=== PATIENT | female | born 1945 | race African-American/Black ===

== ENCOUNTER 2016-08-02 14:35 | Emergency (ER) | payer OTHER ==
[~2016-08-02] VITALS: Ht 167.6 cm; Wt 92.1 kg
[~2016-08-02 14:35] MED LIST: IBUPROFEN600 MG ORAL
[2016-08-02 15:15] VITALS: BP 141/82
[2016-08-02 15:38] LABS: APPEARANCE,URINE CLEAR; KETONES,URINE NEGATIVE (NEGATIVE); LEUKOCYTE ESTERASE ,URINE 1+ (NEGATIVE); NITRITE,URINE NEGATIVE (NEGATIVE); PH,URINE 6 (4.5-8.0); PROTEIN,URINE 2+ (NEGATIVE); UROBILINOGEN,URINE NORMAL MG/DL (0.0-1.0)
[2016-08-02 15:59] LABS: BACTERIA,URINE FEW /HPF; SQUAMOUS EPITHELIAL CELL,UR FEW /LPF (NONE/OCC)
[2016-08-02] MEDS ORDERED: NITROFURANTOIN100 M2 ORAL (16:05)
[2016-08-02 16:30] VITALS: BP 141/82
--- NOTE | 2016-08-02 17:01 | Emergency Room Report ---
History of Present Illness General Chief Complaint: Vaginal Source: Patient Present Illness HPI The patient is a 70-year-old female presenting with one week of dysuria, increased urinary frequency, and vaginal irritation. Pain is described as an 8/ 10 burning which occurs only during urination. The patient also admits to lower mid abdominal pain. The patient denies flank pain denies other symptoms including nausea, vomiting, fever, chills, rash Allergies: Coded Allergies: No Known Allergies (Unverified , 07/29/14) Patient History Past Medical History: see triage record Pertinent Family History: none Last Menstrual Period: na Reviewed Nursing Documentation: PMH: Agreed, PSxH: Agreed Nursing Documentation-PMH Past Medical History: No History, Except For Hx Cardiac Problems: Yes - high cholesterol Hx Hypertension: Yes Hx Diabetes: Yes Review of Systems All Other Systems: negative except mentioned in HPI Physical Exam Vital Signs Date Time Temp Pulse Resp B/P Pulse Ox O2 Delivery O2 Flow Rate FiO2 08/02/16 14:52 97.7 98 16 141/82 96 Room Air Sp02 EP Interpretation: reviewed, normal General Appearance: no apparent distress, alert, GCS 15, non-toxic Head: normocephalic, atraumatic Eyes: bilateral eye PERRL, bilateral eye normal inspection Gastrointestinal: normal bowel sounds, non tender, soft, non-distended, no guarding, no rebound Genitourinary: normal inspection, no CVA tenderness Musculoskeletal: back normal, gait/station normal, normal range of motion, non- tender Neurologic: alert, oriented x3, responsive, motor strength/tone normal, sensory intact, speech normal Psychiatric: judgement/insight normal, memory normal, mood/affect normal, no suicidal/homicidal ideation Skin: normal color, no rash, warm/dry, well hydrated Lymphatic: no adenopathy Medical Decision Making PA Attestation Dr. James is my supervising physician. Patient management was discussed with my supervising physician Diagnostic Impression: Primary Impression: Urinary tract infection ER Course The patient is a 70-year-old female presenting with one week of dysuria, increased urinary frequency, and vaginal irritation. Differential diagnosis considered but not limited to: UTI, vaginitis, pyelonephritis, pyelonephrosis, PID, ectopic PE: Vitals WNL. NAD. Abdomen: Normal appearance. Non distended. No ecchymosis. Normal BS. Non TTP. No McBurney point tenderness. No guarding. No CVA tenderness Urinalysis shows few bacteria with 1+ leukocyte esterase The patient is discharged home with a prescription for Macrobid and will followup with PMD. ER precautions are given Laboratory Tests Test 08/02/16 15:21 Urine Color Pale yellow Urine Appearance Clear Urine pH 6 (4.5-8.0) Urine Specific [place] 1.015 (1.005-1.035) Urine Protein 2+ (NEGATIVE) H Urine Glucose (UA) 4+ (NEGATIVE) H Urine Ketones Negative (NEGATIVE) Urine Occult Blood 1+ (NEGATIVE) H Urine Nitrite Negative (NEGATIVE) Urine Bilirubin Negative (NEGATIVE) Urine Urobilinogen Normal MG/DL (0.0-1.0) Urine Leukocyte Esterase 1+ (NEGATIVE) H Urine RBC 2-4 /HPF (0 - 2) H Urine WBC 2-4 /HPF (0 - 2) Urine Squamous Epithelial Cells Few /LPF (NONE/OCC) Urine Bacteria Few /HPF (NONE) Lab Results Impression 1+ leukocyte esterase with few bacteria Last Vital Signs Date Time Temp Pulse Resp B/P Pulse Ox O2 Delivery O2 Flow Rate FiO2 08/02/16 14:52 97.7 98 16 141/82 96 Room Air Status: improved Disposition: HOME, SELF-CARE Condition: Improved Scripts Nitrofurantoin Monohyd/M-Cryst* (MACROBID 100 MG*) 100 Mg Capsule 100 MG ORAL EVERY 12 HOURS, #14 CAP Prov: ANNA ULLOA 08/02/16 Patient Instructions: Urinary Tract Infection Additional Instructions: I discussed my findings with the patient. All questions and concerns have been answered. Treatment and medication compliance have been addressed. I advised the patient that they need to follow up with PMD in 3-5 days. Return to ED if symptoms worsen, new symptoms arise, or if needed for any reason. Patient verbalized understanding of discharge instructions. ANNA ULLOA Aug 02, 2016 17:01
== END 2016-08-02 16:30 | disposition home or self-care (01) ==
LOC: EMR 15:00
DX: N39.0 Urinary tract infection, site not specified (principal); I10 Essential (primary) hypertension; E11.9 Type 2 diabetes mellitus without complications
CPT/HCPCS: 81003; 99283

== ENCOUNTER 2018-08-08 13:01 | Emergency (ER) | payer MEDICARE, OTHER ==
[~2018-08-08] VITALS: Ht 167.6 cm; Wt 88.0 kg
[~2018-08-08 13:01] MED LIST changes: +NITROFURANTOIN100 M2 ORAL
--- NOTE | 2018-08-08 13:44 | Emergency Room Report ---
History of Present Illness General Chief Complaint: Back Pain-No Injury Source: Patient Present Illness HPI 72-year-old female patient presents the ER complaining of left-sided lower back pain times a few days. Reports that she bent over to orange picker something and when she stood up her back began to hurt. Reports pain in that side of her back. Denies tenderness palpation however reports pain worse with movement. Denies bowel or bladder incontinence. Denies history of back problems. Denies pain radiating down her legs. Denies history of cancer drug use. Denies fever , chest pain, shortness of breath. Denies abdominal pain. Denies other aggravating or relieving factors pain. denies dysuria, hematuria. Allergies: Coded Allergies: No Known Allergies (Unverified , 07/29/14) Patient History Past Medical History: see triage record Now: No Reviewed Nursing Documentation: PMH: Agreed; PSxH: Agreed Nursing Documentation-PMH Past Medical History: No History, Except For Hx Cardiac Problems: Yes - high cholesterol Hx Hypertension: Yes Hx Diabetes: Yes Review of Systems All Other Systems: negative except mentioned in HPI Physical Exam Vital Signs Date Time Temp Pulse Resp B/P (MAP) Pulse Ox O2 Delivery O2 Flow Rate FiO2 08/08/18 13:19 97.9 80 21 179/90 96 Room Air Sp02 EP Interpretation: reviewed, normal General Appearance: well appearing, no apparent distress, alert, GCS 15, non- toxic Head: normocephalic, atraumatic Eyes: bilateral eye normal inspection, bilateral eye PERRL ENT: hearing grossly normal, normal pharynx, no angioedema, normal voice, uvula midline, moist mucus membranes Neck: full range of motion, no meningismus, no bony tend Respiratory: lungs clear, normal breath sounds, no rhonchi, no respiratory distress, no accessory muscle use, no wheezing, speaking full sentences Cardiovascular #1: regular rate, rhythm, no edema Gastrointestinal: non tender, soft, no mass, non-distended, no guarding, no rebound Genitourinary: no CVA tenderness Musculoskeletal: back normal, digits/nails normal, gait/station normal, normal range of motion, non-tender Neurologic: alert, oriented x3, responsive, motor strength/tone normal, SLR negative, sensory intact, cerebellar normal, normal gait, speech normal Psychiatric: mood/affect normal Skin: no rash Medical Decision Making PA Attestation Dr. Vela is my supervising Physician whom patient management has been discussed with. Diagnostic Impression: Primary Impression: Back pain ER Course Pt presents to ED c/o back pain. DDX considered but are not limited to sprain, strain, cauda equine, epidural abscess, AAA, spinal cord compression, kidney stones. Low suspicion for cauda equina, no bowel or bladder incontinence or retention. No fever, nontoxic appearing, no radiation of pain, low suspicion for epidural mass. No abdominal pain, no blood pressure elevation, nontoxic appearing, low suspicion for AAA. VITAL SIGNS are WNL, patient is afebrile Ordered pain medication, imaging, labs. ER COURSE: Pain medication provided. CT lumbar spine shows No acute bony trauma and Degenerative changes. Discuss results with the patient. Provided patient with copy of results. Instructed patient to followup with PCP and discuss results of report with patient, discuss need for further treatment and referral. Followup with pain management and/or PT. Request referral from PCP. Followup with PCP for further MRI as needed. Patient reports feeling better. Able to ambulate independently. Okay for outpatient follow-up and treatment. DISCHARGE: -Rx provided for Motrin -Rx provided for Lidocaine patch -Rx provided for Robaxin. SE may cause drowsiness, do not take prior to drinking , driving, or operating [employer] machinery. At this time pt. is stable for d/c to home. At this time patient is resting comfortably, in no acute distress, nontoxic appearing, smiling and talking without difficulty. Will provide printed patient care instructions, and any necessary prescriptions. Patient instructed to follow with primary care provider for further treatment and referral as needed. Care plan and follow up instructions have been discussed with the patient prior to discharge. Patient reports understanding and agreement to treatment plan. Patient questions asked and answered. ER precautions given, patient instructed to return to ER immediately for any new or worsening of symptoms. - Please note that this Emergency Department Report was dictated using [employer] technology software, occasionally this can lead to erroneous entry secondary to interpretation by the dictation equipment. CT/MRI/US Diagnostic Results CT/MRI/US Diagnostic Results : Imaging Test Ordered: CT lumbar spine Impression Impression: No acute bony trauma Degenerative changes, as detailed in radiology report. Last Vital Signs Date Time Temp Pulse Resp B/P (MAP) Pulse Ox O2 Delivery O2 Flow Rate FiO2 08/08/18 13:19 97.9 80 21 179/90 96 Room Air Status: improved Disposition: HOME, SELF-CARE Condition: Stable Scripts Ibuprofen* (MOTRIN*) 600 Mg Tablet 600 MG ORAL Q8H PRN for For Pain, #30 TAB 0 Refills Prov: Lew Beard 08/08/18 Lidocaine (Lidocaine) 1 Each Adh..patch 5 % TP DAILY for 7 Days, #7 PATCH Prov: Lew Beard 08/08/18 Baclofen* (BACLOFEN*) 10 Mg Tablet 10 MG ORAL THREE TIMES A DAY, #20 TAB Prov: Lew Beard 08/08/18 Patient Instructions: Back Pain, Adult, Degenerative Disk Disease, Muscle Strain, [id number] Additional Instructions: Patient instructed to follow up with primary care provider and discuss further referral to orthopedics/physical therapy/pain management as needed. If unable to followup with PCP, followup with orthopedic urgent care in 5-7 days , call to schedule appointment. Patient instructed on RICE method: rest, ice, compression, elevation. Patient instructed to WBAT. Take medications as directed. Patient questions asked and answered. ER precautions given, patient instructed to return to ER immediately for any new or worsening of symptoms. [facility] [address] [facility] [address] [facility], [address] [email or web address] Lew Beard Aug 08, 2018 13:44
[2018-08-08] MEDS ORDERED: traMADol 50mg tab ORAL ONE (13:45)
[2018-08-08] MEDS ORDERED: Methocarbamol 500mg tab ORAL ONE (13:45)
--- NOTE | 2018-08-08 14:42 | Diagnostic Imaging Report ---
Indications: Left-sided lower back pain for a few days Technique: Spiral acquisitions obtained through the lumbar spine. Multiplanar reconstructions were generated. No IV contrast utilized. Total dose length product 654.53 mGycm. CTDIvol(s) 23.21 mGy. Dose reduction achieved using automated exposure control Comparison: none Findings: There is transitional anatomy with T12 demonstrating vestigial ribs. The bony alignment is normal. Vertebral body heights are preserved. The disc spaces are preserved. No acute fractures. No dislocations. At T11-12, there is mild vacuum disc formation. No significant disc bulge or protrusion, disc narrowing, spinal stenosis, or neural foraminal stenosis. At L1-2, there is mild circumferential annular bulge. This results in equivocal borderline narrowing of the spinal canal. No significant neural foraminal stenosis. At L2-3, there is vacuum formation. The disc spaces preserved. There is suggestion of left subarticular and some foraminal disc protrusion as well as mild circumferential annular bulge. In combination with ligamentum flavum and facet hypertrophy, this results in mild narrowing of the spinal canal, possible compromise of the left lateral recess and neural foramen. The right neural foramen is preserved. There is mild bilateral facet arthrosis at this level. At L3-4, there is circumferential annular bulge. This, in combination with ligamentum flavum hypertrophy, results in mild narrowing of the spinal canal. There is also some left subarticular disc protrusion, which may impinge slightly upon the left lateral recess. This does not significantly compromise the neural foramen. There is bilateral facet arthrosis. The disc space is preserved. At the remaining disc levels, no significant disc bulge or protrusion, spinal stenosis, or neural foraminal stenosis. There is facet arthrosis of the bilateral L3-4, L4-5, and L5-S1 facets, most striking at L3-4 The included extraspinal soft tissues are unremarkable Impression: No acute bony trauma Degenerative changes, as detailed on a level by level basis above The CT scanner at [facility] is accredited by the [employer] and the scans are performed using protocols designed to limit radiation exposure to as low as reasonably achievable to attain images of sufficient resolution adequate for diagnostic evaluation.
--- NOTE | 2018-08-08 14:48 | NUR ---
ED Nurse Note: Pt walked in from home, bended down to leaf size picker object on Wednesday08/05/18 and has lower back pain since then. Pain 9/10 ramesh. BP 179/80 upon arrival. AOx4, other VSS. will cont to monitor.
[2018-08-08 14:52] VITALS: BP 159/91
[2018-08-08] MEDS ORDERED: IBUPROFEN600 MG ORAL (15:34)
[2018-08-08] MEDS ORDERED: BACLOFEN10 MG ORAL (15:34)
[2018-08-08] MEDS ORDERED: LIDOCAINE700 M1 TP (15:34)
[2018-08-08 15:44] VITALS: BP 159/91
--- NOTE | 2018-08-08 15:45 | NUR ---
ER DISCHARGE NOTE: Patient is cleared to be discharged per ERMD, pt is aox4, on room air, with stable vital signs. pt was given dc and prescription instructions, pt was able to verbalize understanding, pt id band removed without complications. pt is able to ambulate with steady gait. pt took all belongings.
== END 2018-08-08 15:40 | disposition home or self-care (01) ==
LOC: EMR 13:56
DX: M54.5 Low back pain (principal); I10 Essential (primary) hypertension; E11.9 Type 2 diabetes mellitus without complications; E78.00 Pure hypercholesterolemia, unspecified
CPT/HCPCS: 72131; 99284

== ENCOUNTER 2019-04-23 09:08 | Emergency (ER) | payer MEDICARE ==
[~2019-04-23] VITALS: Ht 167.6 cm; Wt 82.6 kg
[~2019-04-23 09:08] MED LIST changes: +BACLOFEN10 MG ORAL; +LIDOCAINE700 M1 TP
--- NOTE | 2019-04-23 09:16 | NUR ---
ED Nurse Note: Patient ambulated into ER from home with c/o vaginal spotting, itching, and irritation. Pain score of 6/10. Patient states a hx of Patient states when she went to the bathroom no vaginal bleeding was present. patient is AAOx4, on room air, and no signs of respiratory or cardiovascular distress noted.
[2019-04-23 09:20] VITALS: BP 172/105
--- NOTE | 2019-04-23 09:49 | NUR ---
ED Nurse Note: Chaperoned PUSHPA Yang in vaginal examination.
[2019-04-23] MEDS ORDERED: FLUCONAZOLE150 MG ORAL (10:00)
[2019-04-23] MEDS ORDERED: Fluconazole 150mg tab ORAL ONE (10:00)
--- NOTE | 2019-04-23 10:00 | Emergency Room Report ---
History of Present Illness General Chief Complaint: Female Urogenital Problems Source: Patient Present Illness HPI 73-year-old female presents with whitish discharge from the vagina, and irritation and itchiness, severity is mild no aggravating relieving factors patient denies any fever/chills, she has a history of a hysterectomy in the past , symptoms have been ongoing for almost a year patient presents for eval Allergies: Coded Allergies: No Known Allergies (Unverified , 07/29/14) Patient History Past Medical History: see triage record Reviewed Nursing Documentation: PMH: Agreed; PSxH: Agreed Nursing Documentation-PMH Past Medical History: No History, Except For Hx Cardiac Problems: Yes - high cholesterol Hx Hypertension: Yes Hx Diabetes: Yes Review of Systems All Other Systems: negative except mentioned in HPI Physical Exam Vital Signs Date Time Temp Pulse Resp B/P (MAP) Pulse Ox O2 Delivery O2 Flow Rate FiO2 04/23/19 09:12 98.4 76 17 172/105 (127) 99 Room Air General Appearance: well appearing, no apparent distress Head: normocephalic, atraumatic ENT: hearing grossly normal, normal voice Neck: full range of motion, supple Respiratory: no respiratory distress, speaking full sentences Gastrointestinal: non tender, soft Rectal: other - Cyber Security Instructor Hussain Mejias RN, atrophy of the vulva, with white discharge Genitourinary: no CVA tenderness Neurologic: alert, normal gait Psychiatric: mood/affect normal Skin: no rash Medical Decision Making Diagnostic Impression: Primary Impression: Atrophic vaginitis Additional Impression: Yeast infection ER Course 73-year-old female presents with atrophic vaginitis as well as a yeast infection , patient has not been sexually active for years, patient additionally has a hysterectomy low suspicion for endometrial carcinoma, patient bleeding is from the atrophic vulva which is friable disposition home with return precautions Last Vital Signs Date Time Temp Pulse Resp B/P (MAP) Pulse Ox O2 Delivery O2 Flow Rate FiO2 04/23/19 09:12 98.4 76 17 172/105 (127) 99 Room Air Disposition: HOME, SELF-CARE Condition: Stable Scripts Fluconazole (FLUCONAZOLE) 150 Mg Tablet 150 MG ORAL DAILY PRN for please take if recurrent yeast, #1 TAB 0 Refills Prov: Hipolito Yang MD 04/23/19 Referrals: NON PHYSICIAN (PCP) [facility] Patient Instructions: Atrophic Vaginitis, [id number], Vaginal Yeast Infection , Adult Additional Instructions: The patient was provided with discharge instructions, notified to follow-up with a primary care doctor and or specialist in the next 24-48 hours, and to return to the ED if they have worsening of their symptoms. Please note that this report is being documented using [employer] technology. This can lead to erroneous entry secondary to incorrect interpretation by the dictating instrument. FOLLOW-UP WITH BOOK OR SCRIPT EDITOR WHO CAN PRESCRIBE ESTROGEN CREAMS Hipolito Yang MD Apr 23, 2019 10:00
--- NOTE | 2019-04-23 10:15 | NUR ---
ER DISCHARGE NOTE: Patient is cleared to be discharged per ERMD Dr. Yang, pt is aox4, on room air, with stable vital signs. pt was given dc and prescription instructions, pt was able to verbalize understanding, pt id band removed without complications. pt is able to ambulate with steady gait. pt took all belongings.
[2019-04-23 10:16] VITALS: BP 150/86
== END 2019-04-23 10:16 | disposition home or self-care (01) ==
LOC: EMR 09:54
DX: N95.2 Postmenopausal atrophic vaginitis (principal); B37.9 Candidiasis, unspecified; I10 Essential (primary) hypertension; E11.9 Type 2 diabetes mellitus without complications; E78.00 Pure hypercholesterolemia, unspecified
CPT/HCPCS: 99283